=== PATIENT | female | born 1990 | race Caucasian/White ===

== ENCOUNTER 2019-01-07 20:49 | Emergency (ER) | payer OTHER ==
[2019-01-07] MEDS ORDERED: SODIUM CHLORIDE 0.9% 1,000 ML IV STA ×2 (21:16)
[2019-01-07] MEDS ORDERED: ONDANSETRON 4 MG/2 ML VIAL IVP STA (21:16)
[2019-01-07] MEDS ORDERED: KETOROLAC 30 MG/ML 1 ML VIAL IVP STA (21:16)
--- NOTE | 2019-01-07 21:24 | ED ---
Abdominal Pain HPI - General Source: patient, RN notes reviewed, old records reviewed Mode of arrival: ambulatory Limitations: no limitations <Senait Irby - Last Filed: 01/07/19 23:08> <Tl Tomas - Last Filed: 01/08/19 00:34> - General Chief Complaint: Abdominal Pain Stated Complaint: Abd.pain Time Seen by Provider: 01/07/19 21:02 - History of Present Illness Initial Comments: Patient is a 28-year-old female presents emergency department today with 2 days of right lower quadrant abdominal pain radiating towards her back. She states he reportedly started in the periumbilical region. Patient states that she's had chills but no specific fever that she is aware of. She is also complains of nausea and some diarrhea. Patient states this surgical history includes endometriosis. Patient reportedly has a history of hepatitis. She is currently on the VIVItrol shot for opiate addiction. (Senait Irby) - Related Data Home Medications Medication Instructions Recorded Confirmed ARIPiprazole [Abilify] 10 mg PO HS 01/07/19 01/07/19 QUEtiapine [SEROquel] 100 mg PO HS 01/07/19 01/07/19 buPROPion HCL [Wellbutrin SR] 200 mg PO DAILY 01/07/19 01/07/19 busPIRone HCl [Buspar] 5 mg PO TID 01/07/19 01/07/19 clonazePAM [KlonoPIN] 0.5 mg PO BID 01/07/19 01/07/19 Allergies Allergy/AdvReac Type Severity Reaction Status Date / Time carbamazepine [From Tegretol] Allergy Unknown Verified 01/07/19 21:09 Penicillins Allergy Unknown Verified 01/07/19 21:09 Review of Systems ROS Other: All systems not noted in ROS Statement are negative. <Senait Irby - Last Filed: 01/07/19 23:08> ROS Other: All systems not noted in ROS Statement are negative. <Tl Tomas - Last Filed: 01/08/19 00:34> ROS Statement: Those systems with pertinent positive or pertinent negative responses have been documented in the HPI. 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 History of Any Multi-Drug Resistant Organisms: None Reported Additional Past Surgical History / Comment(s): edometriosis surgery Past Psychological History: No Psychological Hx Reported Smoking Status: Current every day smoker Past Alcohol Use History: None Reported Past Drug Use History: None Reported <Senait Irby - Last Filed: 01/07/19 23:08> General Exam Limitations: no limitations General appearance: alert, in no apparent distress Head exam: Present: atraumatic, normocephalic, normal inspection Eye exam: Present: normal appearance, PERRL, EOMI. Absent: scleral icterus, con junctival injection, periorbital swelling ENT exam: Present: normal exam, mucous membranes moist Neck exam: Present: normal inspection. Absent: tenderness, meningismus, lymphadenopathy Respiratory exam: Present: normal lung sounds bilaterally. Absent: respiratory distress, wheezes, rales, rhonchi, stridor Cardiovascular Exam: Present: regular rate, normal rhythm, normal heart sounds. Absent: systolic murmur, diastolic murmur, rubs, gallop, clicks GI/Abdominal exam: Present: soft, tenderness (RLQ ), normal bowel sounds. Absent: distended, guarding, rebound, rigid Extremities exam: Present: normal inspection, full ROM, normal capillary refill. Absent: tenderness, pedal edema, joint swelling, calf tenderness Back exam: Present: normal inspection Neurological exam: Present: alert, oriented X3, CN II-XII intact Psychiatric exam: Present: normal affect, normal mood <Senait Irby - Last Filed: 01/07/19 23:08> - General Exam Comments Initial Comments: 28-year-old female. Alert and oriented 3. No distress. (Senait Irby) Course Vital Signs 01/07/19 01/07/19 20:54 21:15 Temperature 98.4 F 99.4 F Pulse Rate 114 H Respiratory 18 Rate Blood Pressure 115/79 O2 Sat by Pulse 99 Oximetry Medical Decision Making <Senait Irby - Last Filed: 01/07/19 23:08> - Lab Data Result diagrams: 01/07/19 22:40 01/07/19 22:40 <Tl Tomas - Last Filed: 01/08/19 00:34> - Medical Decision Making Patient is a 28-year-old female presents emergency department today with 3 days of right lower quadrant abdominal pain nausea. Patient does have some tendern ess noted. She was given IV fluids labwork obtained. She does not have a low- grade temperature 99.4. She is given Toradol. Patient was a difficult IV start. Eventually ultrasound guided IV was placed. She is currently in computed tomography scan. Patient's case will be discharged to Dr. Tomas pending CT report. (Senait Irby) I saw this patient in conjunction with the physician elder assistant. I performed independent history and physical exam. Agree with case management. CT results do not show inflammation related to the appendix. Patient does have a right ovarian cyst. Discussed appropriate further care and follow-up as well as return parameters. (Tl Tomas) - Lab Data Lab Results 01/07/19 01/07/19 01/07/19 Range/Units 21:50 21:50 22:40 WBC (3.8-10.6) k/uL RBC (3.80-5.40) m/uL Hgb (11.4-16.0) gm/dL Hct (34.0-46.0) % MCV (80.0-100.0) fL MCH (25.0-35.0) pg MCHC (31.0-37.0) g/dL RDW (11.5-15.5) % Plt Count (150-450) k/uL Neutrophils % % Lymphocytes % % Monocytes % % Eosinophils % % Basophils % % Neutrophils # (1.3-7.7) k/uL Lymphocytes # (1.0-4.8) k/uL Monocytes # (0-1.0) k/uL Eosinophils # (0-0.7) k/uL Basophils # (0-0.2) k/uL Sodium 142 (137-145) mmol/L Potassium 4.4 (3.5-5.1) mmol/L Chloride 107 (98-107) mmol/L Carbon Dioxide 25 (22-30) mmol/L Anion Gap 10 mmol/L BUN 9 (7-17) mg/dL Creatinine 0.84 (0.52-1.04) mg/dL Est GFR (CKD-EPI)AfAm >90 (>60 ml/min/1.73 sqM) Est GFR (CKD-EPI)NonAf >90 (>60 ml/min/1.73 sqM) Glucose 89 (74-99) mg/dL Calcium 10.1 (8.4-10.2) mg/dL Total Bilirubin 0.7 (0.2-1.3) mg/dL AST 36 (14-36) U/L ALT 45 (9-52) U/L Alkaline Phosphatase 63 (38-126) U/L Total Protein 8.5 H (6.3-8.2) g/dL Albumin 4.9 (3.5-5.0) g/dL Amylase 45 (30-110) U/L Lipase 25 (23-300) U/L Urine Color Yellow Urine Appearance Cloudy H (Clear) Urine pH 7.0 (5.0-8.0) Ur Specific [place] 1.009 (1.001-1.035) Urine Protein Negative (Negative) Urine Glucose (UA) Negative (Negative) Urine Ketones Negative (Negative) Urine Blood Negative (Negative) Urine Nitrite Negative (Negative) Urine Bilirubin Negative (Negative) Urine Urobilinogen <2.0 (<2.0) mg/dL Ur Leukocyte Esterase Small H (Negative) Urine RBC 2 (0-5) /hpf Urine WBC 6 H (0-5) /hpf Ur Squamous Epith Cells 9 H (0-4) /hpf Urine Mucus Rare H (None) /hpf Urine HCG, Qual Not Detected (Not Detectd) 01/07/19 Range/Units 22:40 WBC 9.3 (3.8-10.6) k/uL RBC 4.53 (3.80-5.40) m/uL Hgb 14.2 (11.4-16.0) gm/dL Hct 43.5 (34.0-46.0) % MCV 96.0 (80.0-100.0) fL MCH 31.3 (25.0-35.0) pg MCHC 32.6 (31.0-37.0) g/dL RDW 13.6 (11.5-15.5) % Plt Count 179 (150-450) k/uL Neutrophils % 56 % Lymphocytes % 35 % Monocytes % 6 % Eosinophils % 1 % Basophils % 1 % Neutrophils # 5.2 (1.3-7.7) k/uL Lymphocytes # 3.2 (1.0-4.8) k/uL Monocytes # 0.5 (0-1.0) k/uL Eosinophils # 0.1 (0-0.7) k/uL Basophils # 0.1 (0-0.2) k/uL Sodium (137-145) mmol/L Potassium (3.5-5.1) mmol/L Chloride (98-107) mmol/L Carbon Dioxide (22-30) mmol/L Anion Gap mmol/L BUN (7-17) mg/dL Creatinine (0.52-1.04) mg/dL Est GFR (CKD-EPI)AfAm (>60 ml/min/1.73 sqM) Est GFR (CKD-EPI)NonAf (>60 ml/min/1.73 sqM) Glucose (74-99) mg/dL Calcium (8.4-10.2) mg/dL Total Bilirubin (0.2-1.3) mg/dL AST (14-36) U/L ALT (9-52) U/L Alkaline Phosphatase (38-126) U/L Total Protein (6.3-8.2) g/dL Albumin (3.5-5.0) g/dL Amylase (30-110) U/L Lipase (23-300) U/L Urine Color Urine Appearance (Clear) Urine pH (5.0-8.0) Ur Specific [place] (1.001-1.035) Urine Protein (Negative) Urine Glucose (UA) (Negative) Urine Ketones (Negative) Urine Blood (Negative) Urine Nitrite (Negative) Urine Bilirubin (Negative) Urine Urobilinogen (<2.0) mg/dL Ur Leukocyte Esterase (Negative) Urine RBC (0-5) /hpf Urine WBC (0-5) /hpf Ur Squamous Epith Cells (0-4) /hpf Urine Mucus (None) /hpf Urine HCG, Qual (Not Detectd) Disposition <Senait Irby - Last Filed: 01/07/19 23:08> Is patient prescribed a controlled substance at d/c from ED?: No <Tl Tomas - Last Filed: 01/08/19 00:34> Clinical Impression: Abdominal pain, Ovarian cyst Disposition: HOME SELF-CARE Condition: Good Instructions (If sedation given, give patient instructions): Abdominal Pain (ED), Ovarian Cyst (ED) Referrals: Nonstaff,Physician [Primary Care Provider] - 1-2 days Murali Daley MD [STAFF PHYSICIAN] - 1-2 days
[2019-01-07 22:07] LABS: Appearance,Urine Cloudy (Clear); Bilirubin,Urine Negative (Negative); Blood,Urine Negative (Negative); Color,Urine Yellow; Glucose,Urine (UA) Negative (Negative); Ketones,Urine Negative (Negative); Leukocyte Esterase,Urine Small (Negative); Mucus,Urine Rare /hpf; Nitrite,Urine Negative (Negative); Protein,Urine Negative (Negative); RBC,Urine 2 /hpf (0-5); Specific Gravity,Urine 1.009 (1.001-1.035); Squamous Epithelial Cell,Urine 9 /hpf (0-4); Urobilinogen,Urine <2.0 mg/dL (<2.0); WBC,Urine 6 /hpf (0-5)
[2019-01-07 23:18] LABS: Basophils # (A) 0.1 k/uL (0-0.2); Basophils % (A) 1 %; Eosinophils # (A) 0.1 k/uL (0-0.7); Eosinophils % (A) 1 %; HCT 43.5 % (34.0-46.0); HGB 14.2 gm/dL (11.4-16.0); Lymphocytes # (A) 3.2 k/uL (1.0-4.8); Lymphocytes % (A) 35 %; MCH 31.3 pg (25.0-35.0); MCHC 32.6 g/dL (31.0-37.0); Mean Platelet Volume 9.4; Monocytes # (A) 0.5 k/uL (0-1.0); Monocytes % (A) 6 %; Neutrophils # (A) 5.2 k/uL (1.3-7.7); Neutrophils % (A) 56 %; Platelet Count 179 k/uL (150-450); RBC 4.53 m/uL (3.80-5.40); RDW 13.6 % (11.5-15.5); WBC 9.3 k/uL (3.8-10.6)
[2019-01-07 23:26] LABS: ALT 45 U/L (9-52); AST 36 U/L (14-36); Albumin 4.9 g/dL (3.5-5.0); Alkaline Phosphatase 63 U/L (38-126); Amylase 45 U/L (30-110); Anion Gap 10 mmol/L; Blood Urea Nitrogen 9 mg/dL (7-17); Calcium 10.1 mg/dL (8.4-10.2); Carbon Dioxide 25 mmol/L (22-30); Chloride 107 mmol/L (98-107); Glucose 89 mg/dL (74-99); Lipase 25 U/L (23-300); Potassium 4.4 mmol/L (3.5-5.1); Sodium 142 mmol/L (137-145); Total Bilirubin 0.7 mg/dL (0.2-1.3); Total Protein 8.5 g/dL (6.3-8.2)
--- NOTE | 2019-01-07 23:39 | CT ---
EXAM: CT Abdomen and Pelvis With Intravenous Contrast CLINICAL HISTORY: ITS.REASON CT Reason: RLQ pain, FEver TECHNIQUE: Axial computed tomography images of the abdomen and pelvis with intravenous contrast. CTDI is 6.9 mGy and DLP is 359 mGy-cm. This CT exam was performed using one or more of the following dose reduction techniques: automated exposure control, adjustment of the mA and/or kV according to patient size, and/or use of iterative reconstruction technique. COMPARISON: No relevant prior studies available. FINDINGS: Lung bases: Unremarkable. No mass. No consolidation. ABDOMEN: Liver: Unremarkable. No mass. Gallbladder and bile ducts: No abnormal ductal dilation or stones. Pancreas: Unremarkable. No mass. No ductal dilation. Spleen: Unremarkable. No splenomegaly. Adrenals: Unremarkable. No mass. Kidneys and ureters: Unremarkable. No solid mass. No hydronephrosis. Stomach and bowel: No obstruction. No mucosal thickening. PELVIS: Appendix: No findings to suggest acute appendicitis. Bladder: Unremarkable. No mass. Reproductive: Right adnexal corpus luteum cyst measuring 1-2 cm. ABDOMEN and PELVIS: Intraperitoneal space: Mild free fluid in the pelvis. No free air. Bones/joints: No acute fracture. No dislocation. Soft tissues: Unremarkable. Vasculature: No abdominal aortic aneurysm. Lymph nodes: Unremarkable. No enlarged lymph nodes. IMPRESSION: 1. Right adnexal corpus luteum cyst measuring 1-2 cm. 2. Mild free fluid in the pelvis.
[2019-01-08] MEDS ORDERED: DICYCLOMINE 10 MG/ML 2 ML AMP IM STA (00:29)
[2019-01-08] MEDS ORDERED: DICYCLOMINE 20 MG TAB PO STA (01:24)
[2019-01-08 02:43] VITALS: BP 111/81; PULSE 97; RESP 19; TEMP 99
== END 2019-01-08 01:37 | disposition home or self-care (01) ==
LOC: EC 20:49
DX: N83.201 Unspecified ovarian cyst, right side (principal); F17.200 Nicotine dependence, unspecified, uncomplicated; Z79.899 Other long term (current) drug therapy; Z88.0 Allergy status to penicillin; Z88.8 Allergy status to other drugs, medicaments and biological substances
CPT/HCPCS: 36415; 80053; 82150; 83605; 83690; 85025; 81001; 81025; 87040; 74177; 99284; 96374; 96375; 96361 ×3; J2405; J1885; Q9967

== ENCOUNTER 2019-01-08 15:07 | Emergency (ER) | payer OTHER ==
[2019-01-08 15:35] VITALS: TEMP 98.6
--- NOTE | 2019-01-08 16:59 | ED ---
Nausea/Vomiting/Diarrhea HPI - General Source: patient Mode of arrival: ambulatory Limitations: no limitations <Senait Irby - Last Filed: 01/08/19 16:58> <Dale Dos Santos - Last Filed: 01/08/19 17:13> - General Chief complaint: Nausea/Vomiting/Diarrhea Stated complaint: Abd pain Time Seen by Provider: 01/08/19 15:44 - Related Data Home Medications Medication Instructions Recorded Confirmed ARIPiprazole [Abilify] 10 mg PO HS 01/07/19 01/08/19 QUEtiapine [SEROquel] 100 mg PO HS 01/07/19 01/08/19 buPROPion HCL [Wellbutrin SR] 200 mg PO DAILY 01/07/19 01/08/19 busPIRone HCl [Buspar] 5 mg PO TID 01/07/19 01/08/19 clonazePAM [KlonoPIN] 0.5 mg PO BID 01/07/19 01/08/19 Previous Rx's Medication Instructions Recorded Ibuprofen [Motrin] 600 mg PO Q6HR PRN #20 tab 01/08/19 Allergies Allergy/AdvReac Type Severity Reaction Status Date / Time carbamazepine [From Tegretol] Allergy Unknown Verified 01/08/19 17:00 Penicillins Allergy Unknown Verified 01/08/19 17:00 Review of Systems ROS Other: All systems not noted in ROS Statement are negative. <Senait Irby - Last Filed: 01/08/19 16:58> ROS Other: All systems not noted in ROS Statement are negative. <Dale Dos Santos - Last Filed: 01/08/19 17:13> ROS Statement: Those systems with pertinent positive or pertinent negative responses have been documented in the HPI. 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 History of Any Multi-Drug Resistant Organisms: None Reported Additional Past Surgical History / Comment(s): edometriosis surgery Past Psychological History: No Psychological Hx Reported Smoking Status: Current every day smoker Past Alcohol Use History: None Reported Past Drug Use History: None Reported <Senait Irby - Last Filed: 01/08/19 16:58> General Exam Limitations: no limitations External exam: Present: normal external exam Speculum exam: Present: normal speculum exam, vaginal discharge (minimal, white adherant discharge). Absent: cervical discharge, vaginal bleeding, foreign body By manual exam: Present: normal by manual exam, adnexal tenderness (R adnexal tenderness). Absent: cervical motion tenderness <SurekhaSenait - Last Filed: 01/08/19 16:58> Course Vital Signs 01/08/19 15:31 Temperature 98.6 F Pulse Rate 71 Respiratory 16 Rate Blood Pressure 105/71 O2 Sat by Pulse 95 Oximetry Medical Decision Making <Dale Dos Santos - Last Filed: 01/08/19 17:13> - Medical Decision Making Medical decision making; the 28-year-old female seen emergency room yesterday. CAT scan that time was negative for appendicitis or any other pathology other than possible saltwater free fluid secondary to a ruptured right ovarian cyst. The patient reported that she got significant relief with the Toradol shot she received yesterday. It was requesting another. Patient will be following up with infectious disease and starting a liver pathology. She is on the visit control because of past narcotic abuse. No narcotics will be administered or provided. The patient referred to [facility], Dr. Chavez. A message be left on his answering service. For ovarian cyst and dysfunctional uterine bleeding. Physician's training program assistant Senait Irby performed vaginal examination. Negative chandelier sign. Mild tenderness to the right adnexal area. Normal discharge, no bleeding. Culture swabs were obtained and sent to laboratory. (Dale Dos Santos) Disposition <Senait Irby - Last Filed: 01/08/19 16:58> Is patient prescribed a controlled substance at d/c from ED?: No Time of Disposition: 17:13 <Dale Dos Santos - Last Filed: 01/08/19 17:13> Clinical Impression: Ovarian cyst, Dysfunctional uterine bleeding Narrative: follow-up with on-call [facility], Dr. Chavez. Follow-up with your infectious disease and your liver specialist. Take medications as directed. (Dale Dos Santos) Disposition: HOME SELF-CARE Condition: Fair Additional Instructions: take Motrin as directed with food, also obtain [id number] Zantac or Pepcid take daily for the next week. Prescriptions: Ibuprofen [Motrin] 600 mg PO Q6HR PRN #20 tab PRN Reason: as needed for pain Referrals: James Ty MD [Primary Care Provider] - 1-2 days Murali Daley MD [STAFF PHYSICIAN] - 1-2 days
[2019-01-08] MEDS ORDERED: KETOROLAC 30 MG/ML 1 ML VIAL IM STA (17:02)
[2019-01-08 17:40] VITALS: BP 103/77; PULSE 75; RESP 18
[2019-01-09 15:47] LABS: C. trachomatis,PCR Negative (Neg,Equiv); Chlamydia trachomatis Source Cervix
[2019-01-09 15:48] LABS: N. gonorrhoeae,PCR Negative (Neg,Equiv); Neisseria Source Cervix
== END 2019-01-08 17:40 | disposition home or self-care (01) ==
LOC: EC 15:07
DX: N83.201 Unspecified ovarian cyst, right side (principal); N93.8 Other specified abnormal uterine and vaginal bleeding; R11.2 Nausea with vomiting, unspecified; R19.7 Diarrhea, unspecified; F17.200 Nicotine dependence, unspecified, uncomplicated; Z79.899 Other long term (current) drug therapy; Z88.8 Allergy status to other drugs, medicaments and biological substances; Z88.0 Allergy status to penicillin
CPT/HCPCS: 87491; 87591; 99284; 96372; J1885

== ENCOUNTER 2019-01-09 18:11 | Emergency (ER) | payer OTHER ==
[2019-01-09 18:51] VITALS: RESP 18
[2019-01-09] MEDS ORDERED: SODIUM CHLORIDE 0.9% 1,000 ML IV STA (19:47)
[2019-01-09] MEDS ORDERED: KETOROLAC 30 MG/ML 1 ML VIAL IVP STA (19:47)
[2019-01-09] MEDS ORDERED: ONDANSETRON 4 MG/2 ML VIAL IVP STA (19:47)
[2019-01-09 19:57] LABS: Basophils % (A) 0 %; Eosinophils # (A) 0.3 k/uL (0-0.7); Eosinophils % (A) 2 %; HCT 42.5 % (34.0-46.0); HGB 14.3 gm/dL (11.4-16.0); Lymphocytes # (A) 1.8 k/uL (1.0-4.8); Lymphocytes % (A) 16 %; MCH 31.3 pg (25.0-35.0); MCHC 33.7 g/dL (31.0-37.0); Mean Platelet Volume 10.5; Monocytes # (A) 0.6 k/uL (0-1.0); Monocytes % (A) 5 %; Neutrophils # (A) 8.4 k/uL (1.3-7.7); Neutrophils % (A) 75 %; Platelet Count 164 k/uL (150-450); RBC 4.57 m/uL (3.80-5.40); RDW 13.7 % (11.5-15.5); WBC 11.2 k/uL (3.8-10.6)
[2019-01-09 20:07] LABS: Appearance,Urine Clear (Clear); Bilirubin,Urine Negative (Negative); Blood,Urine Negative (Negative); Color,Urine Light Yellow; Glucose,Urine (UA) Negative (Negative); Ketones,Urine Negative (Negative); Leukocyte Esterase,Urine Negative (Negative); Nitrite,Urine Negative (Negative); Protein,Urine Negative (Negative); Urobilinogen,Urine <2.0 mg/dL (<2.0)
[2019-01-09 20:07] LABS: ALT 23 U/L (9-52); AST 34 U/L (14-36); Albumin 4.9 g/dL (3.5-5.0); Alkaline Phosphatase 61 U/L (38-126); Amylase 65 U/L (30-110); Anion Gap 10 mmol/L; Blood Urea Nitrogen 9 mg/dL (7-17); Calcium 9.7 mg/dL (8.4-10.2); Carbon Dioxide 22 mmol/L (22-30); Chloride 105 mmol/L (98-107); Glucose 86 mg/dL (74-99); Lipase 65 U/L (23-300); Sodium 137 mmol/L (137-145); Total Protein 8.8 g/dL (6.3-8.2)
[2019-01-09 20:10] LABS: Potassium 4.3 mmol/L (3.5-5.1)
[2019-01-09 20:17] LABS: Specific Gravity,Urine 1.001 (1.001-1.035)
--- NOTE | 2019-01-09 21:02 | ED ---
Abdominal Pain HPI - General Chief Complaint: Abdominal Pain Stated Complaint: abd pain Time Seen by Provider: 01/09/19 19:22 Source: patient Mode of arrival: ambulatory Limitations: no limitations - History of Present Illness Initial Comments: 28-year-old female patient presents to the emergency department today for evaluation of right lower quadrant abdominal pain, vomiting, and diarrhea. Patient has had symptoms for the last 2-3 days. States it initially started with abdominal pain and she developed vomiting and diarrhea on the following days. She states that she has been feverish and chilled. States she has been seen and evaluated in this emergency department for the last 2 days. She was diagnosed with ovarian cyst and instructed to follow-up with [facility]. States that she is still awaiting to hear back from the office for an appointment. Patient denies taking any medications for her symptoms. States she is unable to keep down any food or fluids. She denies any hematochezia, melena, or hematemesis. Denies any abnormal vaginal bleeding or discharge. Patient denies any recent rash, shortness breath, chest pain, back pain, numbness, tingling, dizziness, weakness, hematuria, dysuria, urinary urgency, urinary frequency, headache, visual changes, or any other complaints. - Related Data Home Medications Medication Instructions Recorded Confirmed ARIPiprazole [Abilify] 10 mg PO HS 01/07/19 01/09/19 QUEtiapine [SEROquel] 100 mg PO HS 01/07/19 01/09/19 buPROPion HCL [Wellbutrin SR] 200 mg PO DAILY 01/07/19 01/09/19 busPIRone HCl [Buspar] 5 mg PO TID 01/07/19 01/09/19 clonazePAM [KlonoPIN] 0.5 mg PO BID 01/07/19 01/09/19 Previous Rx's Medication Instructions Recorded Ibuprofen [Motrin] 600 mg PO Q6HR PRN #20 tab 01/08/19 Ondansetron [Zofran ODT] 4 mg PO Q8HR PRN #10 tab 01/09/19 Allergies Allergy/AdvReac Type Severity Reaction Status Date / Time carbamazepine [From Tegretol] Allergy Unknown Verified 01/09/19 19:09 Penicillins Allergy Unknown Verified 01/09/19 19:09 Review of Systems ROS Statement: Those systems with pertinent positive or pertinent negative responses have been documented in the HPI. ROS Other: All systems not noted in ROS Statement are negative. 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 History of Any Multi-Drug Resistant Organisms: None Reported Additional Past Surgical History / Comment(s): edometriosis surgery Past Psychological History: No Psychological Hx Reported Smoking Status: Current every day smoker Past Alcohol Use History: None Reported Past Drug Use History: None Reported General Exam Limitations: no limitations General appearance: alert, in no apparent distress, other (Physical well- developed, well-nourished adult female patient in no acute distress. Vital signs upon presentation are temperature 98.5F, pulse 90, respirations 18, blood pressure 109/75, pulse ox 100% on room air.) Eye exam: Present: normal appearance, PERRL, EOMI. Absent: scleral icterus, conjunctival injection, periorbital swelling ENT exam: Present: normal exam, normal oropharynx, mucous membranes moist Respiratory exam: Present: normal lung sounds bilaterally. Absent: respiratory distress, wheezes, rales, rhonchi, stridor Cardiovascular Exam: Present: regular rate, normal rhythm, normal heart sounds. Absent: systolic murmur, diastolic murmur, rubs, gallop, clicks GI/Abdominal exam: Present: soft, tenderness (Right lower quadrant tenderness, suprapubic tenderness), normal bowel sounds. Absent: distended, guarding, rebound, rigid Back exam: Present: normal inspection. Absent: CVA tenderness (R), CVA tenderness (L) Neurological exam: Present: alert, oriented X3, CN II-XII intact Psychiatric exam: Present: normal affect, normal mood Skin exam: Present: warm, dry, intact, normal color. Absent: rash Course Vital Signs 01/09/19 01/09/19 01/09/19 18:48 21:50 22:39 Temperature 98.5 F 98.3 F 98.2 F Pulse Rate 90 90 88 Respiratory 18 18 18 Rate Blood Pressure 109/75 107/64 129/79 O2 Sat by Pulse 100 97 97 Oximetry Medical Decision Making - Medical Decision Making 28 year-old female patient presented to the emergency department today for evaluation of vomiting, diarrhea, and right lower quadrant abdominal pain. Patient has been seen and evaluated for the last 2 days and this emergency department for similar symptoms. Physical examination did reveal some right lower quadrant tenderness. Labs reviewed and did reveal mildly elevated white blood cell count at 11.2 which is felt to be reactive from vomiting. Ultrasound was obtained and showed no acute abnormalities. She did have CT scanning 2 days ago which showed a corpus luteum cyst but no other abnormalities. Upon reevalua tion patient reports complete improvement of her symptoms. Reexamination reveals soft nontender abdomen. I did discuss lab results and ultrasound findings. I did discuss her symptoms are most likely related to a viral gastroenteritis. She will be given a prescription for Zofran. She is instruct ed to follow-up with her primary care physician for recheck in 1-2 days. Return parameters were discussed in detail. She verbalizes understanding and agrees with this plan. - Lab Data Result diagrams: 01/09/19 19:44 01/09/19 19:44 Lab Results 01/09/19 01/09/19 01/09/19 Range/Units 19:44 19:44 19:44 WBC 11.2 H (3.8-10.6) k/uL RBC 4.57 (3.80-5.40) m/uL Hgb 14.3 (11.4-16.0) gm/dL Hct 42.5 (34.0-46.0) % MCV 93.0 (80.0-100.0) fL MCH 31.3 (25.0-35.0) pg MCHC 33.7 (31.0-37.0) g/dL RDW 13.7 (11.5-15.5) % Plt Count 164 (150-450) k/uL Neutrophils % 75 % Lymphocytes % 16 % Monocytes % 5 % Eosinophils % 2 % Basophils % 0 % Neutrophils # 8.4 H (1.3-7.7) k/uL Lymphocytes # 1.8 (1.0-4.8) k/uL Monocytes # 0.6 (0-1.0) k/uL Eosinophils # 0.3 (0-0.7) k/uL Basophils # 0.0 (0-0.2) k/uL Sodium 137 (137-145) mmol/L Potassium 4.3 (3.5-5.1) mmol/L Chloride 105 (98-107) mmol/L Carbon Dioxide 22 (22-30) mmol/L Anion Gap 10 mmol/L BUN 9 (7-17) mg/dL Creatinine 0.91 (0.52-1.04) mg/dL Est GFR (CKD-EPI)AfAm >90 (>60 ml/min/1.73 sqM) Est GFR (CKD-EPI)NonAf 86 (>60 ml/min/1.73 sqM) Glucose 86 (74-99) mg/dL Plasma Lactic Acid Hal 1.0 (0.7-2.0) mmol/L Calcium 9.7 (8.4-10.2) mg/dL Total Bilirubin 1.0 (0.2-1.3) mg/dL AST 34 (14-36) U/L ALT 23 (9-52) U/L Alkaline Phosphatase 61 (38-126) U/L Total Protein 8.8 H (6.3-8.2) g/dL Albumin 4.9 (3.5-5.0) g/dL Amylase 65 (30-110) U/L Lipase 65 (23-300) U/L Urine Color Urine Appearance (Clear) Urine pH (5.0-8.0) Ur Specific [place] (1.001-1.035) Urine Protein (Negative) Urine Glucose (UA) (Negative) Urine Ketones (Negative) Urine Blood (Negative) Urine Nitrite (Negative) Urine Bilirubin (Negative) Urine Urobilinogen (<2.0) mg/dL Ur Leukocyte Esterase (Negative) Urine HCG, Qual (Not Detectd) 01/09/19 01/09/19 Range/Units 19:59 19:59 WBC (3.8-10.6) k/uL RBC (3.80-5.40) m/uL Hgb (11.4-16.0) gm/dL Hct (34.0-46.0) % MCV (80.0-100.0) fL MCH (25.0-35.0) pg MCHC (31.0-37.0) g/dL RDW (11.5-15.5) % Plt Count (150-450) k/uL Neutrophils % % Lymphocytes % % Monocytes % % Eosinophils % % Basophils % % Neutrophils # (1.3-7.7) k/uL Lymphocytes # (1.0-4.8) k/uL Monocytes # (0-1.0) k/uL Eosinophils # (0-0.7) k/uL Basophils # (0-0.2) k/uL Sodium (137-145) mmol/L Potassium (3.5-5.1) mmol/L Chloride (98-107) mmol/L Carbon Dioxide (22-30) mmol/L Anion Gap mmol/L BUN (7-17) mg/dL Creatinine (0.52-1.04) mg/dL Est GFR (CKD-EPI)AfAm (>60 ml/min/1.73 sqM) Est GFR (CKD-EPI)NonAf (>60 ml/min/1.73 sqM) Glucose (74-99) mg/dL Plasma Lactic Acid Hal (0.7-2.0) mmol/L Calcium (8.4-10.2) mg/dL Total Bilirubin (0.2-1.3) mg/dL AST (14-36) U/L ALT (9-52) U/L Alkaline Phosphatase (38-126) U/L Total Protein (6.3-8.2) g/dL Albumin (3.5-5.0) g/dL Amylase (30-110) U/L Lipase (23-300) U/L Urine Color Light Yellow Urine Appearance Clear (Clear) Urine pH 6.0 (5.0-8.0) Ur Specific [place] 1.001 (1.001-1.035) Urine Protein Negative (Negative) Urine Glucose (UA) Negative (Negative) Urine Ketones Negative (Negative) Urine Blood Negative (Negative) Urine Nitrite Negative (Negative) Urine Bilirubin Negative (Negative) Urine Urobilinogen <2.0 (<2.0) mg/dL Ur Leukocyte Esterase Negative (Negative) Urine HCG, Qual Not Detected (Not Detectd) - Radiology Data Radiology results: report reviewed Ultrasound of the pelvis was obtained. Report was reviewed in its entirety. I mpression by Dr. Pickering shows negative exam. No evidence of ovarian torsion. No adnexal mass or free fluid. Disposition Clinical Impression: Gastroenteritis, Abdominal pain Disposition: HOME SELF-CARE Condition: Good Instructions (If sedation given, give patient instructions): Gastroenteritis (ED), Abdominal Pain (ED) Additional Instructions: Start with clear liquid diet and advance as tolerated. Take medications as directed. Follow-up through primary care physician for recheck as soon as possible. Return to the emergency department for any new, worsening, or concerning symptoms. Prescriptions: Ondansetron [Zofran ODT] 4 mg PO Q8HR PRN #10 tab PRN Reason: Nausea Is patient prescribed a controlled substance at d/c from ED?: No Referrals: James Ty MD [Primary Care Provider] - 1-2 days Time of Disposition: 22:29
--- NOTE | 2019-01-09 21:35 | US ---
EXAMINATION TYPE: US transvaginal DATE OF EXAM: 01/09/2019 COMPARISON: NONE CLINICAL HISTORY: Pain. Pain and vomiting. TECHNIQUE: Transvaginal (TV). EXAM MEASUREMENTS: Uterus: 6.3 x 3.7 x 5.4 cm Endometrial Stripe: 1.0 cm Right Ovary: 2.8 x 1.7 x 2.1 cm 1. Uterus: Anteverted wnl 2. Endometrium: wnl 3. Right Ovary: wnl 4. Left Ovary: Obscured by overlying bowel gas Spectral, color and waveform doppler imaging shows good arterial and venous flow within the right o vary; there is no evidence for ovarian torsion. 5. Bilateral Adnexa: wnl 6. Posterior cul-de-sac: wnl IMPRESSION: Negative exam. No evidence of ovarian torsion. No adnexal mass or free fluid.
[2019-01-09] MEDS ORDERED: clonazePAM 0.5 MG TAB PO STA (22:28)
[2019-01-09] MEDS ORDERED: ONDANSETRON 4 MG ODT STARTER PACK 2 TAB BTL PO STA (22:28)
[2019-01-09 22:42] VITALS: BP 129/79; PULSE 88; TEMP 98.2
== END 2019-01-09 22:42 | disposition home or self-care (01) ==
LOC: EC 18:11
DX: K52.9 Noninfective gastroenteritis and colitis, unspecified (principal); N83.10 Corpus luteum cyst of ovary, unspecified side; F17.200 Nicotine dependence, unspecified, uncomplicated; Z86.19 Personal history of other infectious and parasitic diseases; Z79.899 Other long term (current) drug therapy; Z88.0 Allergy status to penicillin; Z88.8 Allergy status to other drugs, medicaments and biological substances
CPT/HCPCS: 36415; 80053; 82150; 83605; 83690; 85025; 81003; 81025; 93976; 76830; 99284; 96374; 96375; 96361 ×3; J2405; J1885; S0119

== ENCOUNTER 2020-07-23 14:03 | Inpatient (IN) | payer MEDICAID, OTHER ==
--- NOTE | 2020-07-23 14:18 | ED ---
Psych HPI - General Chief Complaint: Psychiatric Symptoms Stated Complaint: Mental Health Time Seen by Provider: 07/23/20 14:17 Source: patient Mode of arrival: ambulatory - History of Present Illness Initial Comments: Patient is a 29-year-old female presenting to the emergency department for psychiatric evaluation. Patient states this was a mandated court order for her to be evaluated in the emergency department after she attempted suicide 5 days ago. Patient states she overdosed on fentanyl and was unresponsive but was rescued. Patient states she is going through a lot with the of her sister and her fianc. She denies any homicidal, suicidal thoughts or ideations at the moment. - Related Data Home Medications Medication Instructions Recorded Confirmed ARIPiprazole [Abilify] 10 mg PO HS 01/07/19 07/23/20 clonazePAM [KlonoPIN] 0.5 mg PO BID 01/07/19 07/23/20 Albuterol Sulfate [Ventolin HFA] 2 puff INHALATION RT-Q6H PRN 07/23/20 07/23/20 QUEtiapine FUMARATE [SEROquel] 300 mg PO HS 07/23/20 07/23/20 Allergies Allergy/AdvReac Type Severity Reaction Status Date / Time carbamazepine [From Tegretol] Allergy Unknown Verified 07/23/20 15:14 Penicillins Allergy Unknown Verified 07/23/20 15:14 Review of Systems ROS Statement: Those systems with pertinent positive or pertinent negative responses have been documented in the HPI. ROS Other: All systems not noted in ROS Statement are negative. 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 History of Any Multi-Drug Resistant Organisms: None Reported Additional Past Surgical History / Comment(s): edometriosis surgery Past Psychological History: Anxiety, Bipolar, PTSD Smoking Status: Current every day smoker Past Alcohol Use History: None Reported Past Drug Use History: Cocaine, Heroin, Opiates General Exam Limitations: no limitations General appearance: alert, in no apparent distress, anxious Head exam: Present: atraumatic, normocephalic, normal inspection Eye exam: Present: normal appearance, PERRL, EOMI Pupils: Present: normal accommodation ENT exam: Present: normal exam, normal oropharynx, mucous membranes moist, TM's normal bilaterally, normal external ear exam Neck exam: Present: normal inspection, full ROM. Absent: tenderness Respiratory exam: Present: normal lung sounds bilaterally. Absent: respiratory distress, wheezes, rales Cardiovascular Exam: Present: regular rate, normal rhythm, normal heart sounds Extremities exam: Present: normal inspection, full ROM, normal capillary refill. Absent: tenderness Back exam: Present: normal inspection, full ROM. Absent: tenderness, CVA tenderness (R), CVA tenderness (L) Neurological exam: Present: alert, oriented X3, normal gait Psychiatric exam: Present: normal affect, depressed, anxious Skin exam: Present: warm, dry, intact, normal color Course Vital Signs 07/23/20 14:07 Temperature 98.7 F Pulse Rate 93 Respiratory 16 Rate Blood Pressure 120/78 O2 Sat by Pulse 100 Oximetry Medical Decision Making - Medical Decision Making Patient is a 29-year-old female presenting to the emergency department for psychiatric evaluation. She doesn't have any suicidal or homicidal thoughts or ideations at this time. This is a mandated court order for her evaluation. EPS related the patient and she will be admitted for further psychiatric evaluation. Patient was given an anxiolytic and a nicotine patch. Case discussed with physician Disposition Clinical Impression: Acute anxiety, Adjustment reaction of adult life Disposition: ADMITTED IP TO THIS [facility] Condition: Fair Is patient prescribed a controlled substance at d/c from ED?: No Time of Disposition: 18:07
[2020-07-23] MEDS ORDERED: NICOTINE 14MG/24HR PATCH TRANSDERM STA (17:12)
[2020-07-23] MEDS ORDERED: LORazepam 2 MG/ML INJ IV STA (17:13)
[2020-07-23] MEDS ORDERED: LORazepam 2 MG/ML INJ IM STA (17:35)
[2020-07-23] MEDS ORDERED: ALBUTEROL HFA INHALER INHALATION PRN (17:50)
[2020-07-23] MEDS ORDERED: MAGNESIUM HYDROXIDE 2,400 MG/10 ML CUP PO PRN (17:51)
[2020-07-23] MEDS ORDERED: MAG HYDROX/AL HYDROX/SIMETH 30 ML CUP PO PRN (17:51)
[2020-07-23] MEDS ORDERED: ZIPRASIDONE 20 MG VIAL IM PRN (17:51)
[2020-07-23] MEDS ORDERED: ACETAMINOPHEN TAB 325 MG TAB PO PRN (17:51)
[2020-07-23 18:11] LABS: Appearance,Urine Cloudy (Clear); Bilirubin,Urine Negative (Negative); Blood,Urine Negative (Negative); Color,Urine Light Yellow; Glucose,Urine (UA) Negative (Negative); Ketones,Urine Negative (Negative); Leukocyte Esterase,Urine Negative (Negative); Mucus,Urine Rare /hpf; Nitrite,Urine Negative (Negative); Protein,Urine Negative (Negative); RBC,Urine 1 /hpf (0-5); Specific Gravity,Urine 1.007 (1.001-1.035); Squamous Epithelial Cell,Urine 11 /hpf (0-4); Urobilinogen,Urine <2.0 mg/dL (<2.0); WBC,Urine <1 /hpf (0-5)
[2020-07-23] MEDS: clonazePAM 0.5 MG TAB PO SCH (19:08)
--- NOTE | 2020-07-23 20:56 | P.CONS ---
History of Present Illness - Reason for Consult Consult date: 07/23/20 - History of Present Illness The patient is a 29-year-old female with a PMH of depression and polysubstance abuse who was brought into the emergency room under police custody after pickup order for multiple suicide attempts. The patient had reportedly attempted to kill herself by overdosing on fentanyl a week prior. She was admitted to the mental health unit where she was seen and evaluated. The patient reports feelin g better since that time, and denied any active homicidal or suicidal ideation. She reported ongoing anxiety for which she is hoping that her medications will be adjusted. She otherwise denied any active complex at this time. She denied chest pain, shortness of breath, cough, fever, chills. She denied nausea vomiting, abdominal pain, diarrhea. Review of Systems Pertinent positives and negatives as discussed in HPI, a complete review of systems was performed and all other systems are negative. 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 History of Any Multi-Drug Resistant Organisms: None Reported Additional Past Surgical History / Comment(s): edometriosis surgery Past Psychological History: Anxiety, Bipolar, PTSD Smoking Status: Former smoker Past Alcohol Use History: None Reported Past Drug Use History: Cocaine, Heroin, Opiates Medications and Allergies Home Medications Medication Instructions Recorded Confirmed Type ARIPiprazole [Abilify] 10 mg PO HS 01/07/19 07/23/20 History clonazePAM [KlonoPIN] 0.5 mg PO BID 01/07/19 07/23/20 History Albuterol Sulfate [Ventolin HFA] 2 puff INHALATION RT-Q6H PRN 07/23/20 07/23/20 History QUEtiapine FUMARATE [SEROquel] 300 mg PO HS 07/23/20 07/23/20 History Allergies Allergy/AdvReac Type Severity Reaction Status Date / Time carbamazepine [From Tegretol] Allergy Unknown Verified 07/23/20 15:14 Penicillins Allergy Unknown Verified 07/23/20 15:14 Physical Exam Vitals: Vital Signs Temp Pulse Pulse Resp BP BP Pulse Ox 07/23/20 18:28 99.4 F 102 H 18 112/67 99 07/23/20 14:07 98.7 F 93 16 120/78 100 Intake and Output 07/23/20 07/23/20 07/23/20 06:59 14:59 22:59 Other: Weight 54.658 kg 53 kg General: non toxic, no distress, appears older than stated age, normal weight Derm: no unusual rashes/lesions no unusual ecchymoses, warm, dry Head: atraumatic, normocephalic, symmetric Eyes: EOMI, no lid lag, anicteric sclera, pupils equal round reactive to light ENT: Nose and ears atraumatic, no thrush, no pharyngeal erythema Neck: No thyromegaly, no cervical lymphadenopathy, trachea midline, supple Mouth: no lip lesion, mucus membranes moist Cardiovascular: S1S2 reg, no murmur, positive posterior tibial pulse bilateral, no edema, capillary refill less than 2 seconds Lungs: CTA bilateral, no rhonchi, no rales , no accessory muscle use Abdominal: soft, nontender to palpation, no guarding, no appreciable organomegaly, normal bowel sounds Ext: no gross muscle atrophy, muscle strength 5 out of 5 in all 4 extremities grossly, no contractures, Neuro: CN II-XI grossly intact, light touch intact all 4 extremities, finger to nose within normal limits, Psych: Alert, oriented, appropriate affect Results Labs: Abnormal Lab Results - Last 24 Hours (Table) 07/23/20 Range/Units 18:00 Urine Appearance Cloudy H (Clear) Ur Squamous Epith Cells 11 H (0-4) /hpf Urine Mucus Rare H (None) /hpf Assessment and Plan Plan: Polysubstance abuse, including IV heroin and fentanyl -Advised patient strongly on the importance of cessation Depression with suicidal ideation and anxiety -As per psychiatry Thank you for allowing us to participate in the care of this patient. We will follow peripherally. Do not hesitate to contact us with questions. Someone can be reached from the [facility] hospitalist group at all hours of the day at [phone].
[2020-07-23] MEDS ORDERED: QUEtiapine 200 MG TAB PO SCH (21:00)
[2020-07-23] MEDS ORDERED: ARIPiprazole 10 MG TAB PO SCH (21:00)
[2020-07-24 07:13] VITALS: BP 115/60; PULSE 91; RESP 16; TEMP 98.7
[2020-07-24] MEDS: clonazePAM 0.5 MG TAB PO SCH ×2 (08:48→20:33)
[2020-07-24] MEDS ORDERED: NICOTINE 14MG/24HR PATCH TRANSDERM SCH (09:00)
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
[2020-07-24] MEDS: VENLAFAXINE HCL ER 37.5 MG CAP PO SCH (09:56)
[2020-07-24] MEDS: NICOTINE 21MG/24HR PATCH TRANSDERM SCH (11:29)
[2020-07-24] MEDS ORDERED: PRAZOSIN 1 MG CAP PO SCH (21:00)
[2020-07-24] MEDS ORDERED: QUEtiapine 100 MG TAB PO SCH (21:00)
[2020-07-24] MEDS ORDERED: MELATONIN 5 MG TABLET PO STA (23:47)
[2020-07-25] MEDS: NICOTINE 21MG/24HR PATCH TRANSDERM SCH (08:21)
[2020-07-25] MEDS: VENLAFAXINE HCL ER 37.5 MG CAP PO SCH (08:21)
[2020-07-25] MEDS: clonazePAM 0.5 MG TAB PO SCH (08:21)
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
== END 2020-07-25 10:37 | disposition home or self-care (01) | DRG 885 ==
LOC: EC 14:03 → 3MHU 17:22
PROVIDERS: ADMIT Psychiatry & Neurology Psychiatry; ATTEND Psychiatry & Neurology Psychiatry
DX: F31.9 Bipolar disorder, unspecified (principal); F11.10 Opioid abuse, uncomplicated; F60.3 Borderline personality disorder; F43.10 Post-traumatic stress disorder, unspecified; F43.20 Adjustment disorder, unspecified; F41.0 Panic disorder [episodic paroxysmal anxiety]; G47.00 Insomnia, unspecified; F17.200 Nicotine dependence, unspecified, uncomplicated; F14.90 Cocaine use, unspecified, uncomplicated; J45.909 Unspecified asthma, uncomplicated; R45.87 Impulsiveness; Z91.5 Personal history of self-harm; Z79.899 Other long term (current) drug therapy; Z87.19 Personal history of other diseases of the digestive system; Z88.0 Allergy status to penicillin; Z88.8 Allergy status to other drugs, medicaments and biological substances
CPT/HCPCS: 81001; 81025; 82075; 96372; 99285

== ENCOUNTER → 2022-02-11 | Outpatient (CLI) | payer MEDICARE, OTHER ==
--- NOTE | 2022-02-11 13:34 | US ---
EXAMINATION TYPE: US venous doppler duplex LE DATE OF EXAM: 02/11/2022 1:01 PM COMPARISON: NONE CLINICAL HISTORY: R29.898 WEAKNESS BOTH LEGS,R20.0 ANESTHESIA BOTH LEGS. SIDE PERFORMED: Bilateral TECHNIQUE: The lower extremity deep venous system is examined utilizing real time linear array sonog beatriz with graded compression, doppler sonography and color-flow sonography. VESSELS IMAGED: Common Femoral Vein Deep Femoral Vein Greater Saphenous Vein * Femoral Vein Popliteal Vein Small Saphenous Vein * Proximal Calf Veins (* superficial vessels) Right Leg: Negative for DVT Left Leg: Negative for DVT IMPRESSION: No evidence for DVT.
--- NOTE | 2022-02-12 13:14 | US ---
EXAMINATION TYPE: US arterial LE single level DATE OF EXAM: 02/11/2022 1:30 PM CLINICAL HISTORY: R29.898 WEAKNESS BOTH LEGS, R20.0 ANESTHESIA BOTH LEGS. Doppler Waveforms: Right: Multiphasic Left: Multiphasic Ankle-Brachial Indices: Right: 1.20 Left: 1.21 Toe Brachial Indices: Right: 1.01 Left: 1.01 IMPRESSION: Normal PRESTON. Correlate with arteriogram as clinically warranted.
== END | disposition home or self-care (01) ==
LOC: RADUSWWP 12:23
PROVIDERS: ATTEND Family Medicine
DX: R20.0 Anesthesia of skin (principal); R29.898 Other symptoms and signs involving the musculoskeletal system; R53.1 Weakness
CPT/HCPCS: 93922; 93970

== ENCOUNTER → 2023-08-02 | Outpatient (CLI) | payer MEDICARE, OTHER ==
[2023-08-02 15:37] LABS: Basophils # (A) 0.05 X 10*3/uL (0.00-0.10); Basophils % (A) 0.7 %; Eosinophils # (A) 0.04 X 10*3/uL (0.04-0.35); Eosinophils % (A) 0.6 %; HCT 40.5 % (37.2-46.3); HGB 13.1 d/dL (12.0-15.0); Lymphocytes # (A) 2.21 X 10*3/uL (0.90-5.00); Lymphocytes % (A) 30.6 %; MCH 31.1 pg (27.0-32.0); MCHC 32.3 d/dL (32.0-37.0); MCV 96.2 FL (80.0-97.0); Mean Platelet Volume 12.3 FL (9.5-12.2); Monocytes # (A) 0.57 X 10*3/uL (0.20-1.00); Monocytes % (A) 7.9 %; NRBC Per 100 WBC 0 X 10*3/uL (0.00-0.01); Neutrophils # (A) 4.32 X 10*3/uL (1.80-7.70); Neutrophils % (A) 59.8 %; Platelet Count 257 X 10*3/uL (140-440); RBC 4.21 X 10*6/uL (4.10-5.20); RDW 14.1 % (11.5-14.5); WBC 7.22 X 10*3/uL (4.50-10.00)
[2023-08-02 16:23] LABS: ALT 17 U/L (8-44); AST 17 U/L (13-35); Albumin 4.8 d/dL (3.8-4.9); Albumin/Globulin Ratio 1.71 Ratio (1.60-3.17); Alkaline Phosphatase 61 U/L (41-126); Blood Urea Nitrogen 10.8 mg/dL (9.0-27.0); Calcium 10.1 mg/dL (8.7-10.3); Carbon Dioxide 22.6 mmol/L (21.6-31.8); Chloride 106 mmol/L (96-109); Globulin 2.8 d/dL (1.6-3.3); Glucose 71 mg/dL (70-110); Potassium 4.2 mmol/L (3.5-5.5); Sodium 141 mmol/L (135-145); Total Bilirubin 0.4 mg/dL (0.3-1.2); Total Protein 7.6 d/dL (6.2-8.2)
== END | disposition home or self-care (01) ==
LOC: LABWHC1 12:41
PROVIDERS: ATTEND Nurse Practitioner Family
DX: B18.2 Chronic viral hepatitis C (principal)
CPT/HCPCS: 36415; 80053; 82105; 85025; 87522

== ENCOUNTER → 2023-08-13 | Outpatient (CLI) | payer MEDICARE, OTHER ==
--- NOTE | 2023-08-13 08:43 | US ---
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 FINDINGS: EXAM MEASUREMENTS: Liver Length: 14.5 cm Gallbladder Wall: 0.2 cm CBD: 0.3 cm Right Kidney: 10.5 x 4.1 x 4.8 cm Pancreas: wnl Liver: wnl Gallbladder: folds. no evidence of stones Evidence for sonographic Mckeon's sign: no CBD: wnl Right Kidney: no evidence of hydronephrosis IMPRESSION: Unremarkable evaluation.
== END | disposition home or self-care (01) ==
LOC: RADUSWWP 06:51
PROVIDERS: ATTEND Internal Medicine Gastroenterology
DX: B18.2 Chronic viral hepatitis C (principal)
CPT/HCPCS: 76705

== ENCOUNTER → 2023-08-26 | Outpatient (CLI) | payer MEDICARE, OTHER | END | disposition home or self-care (01) | LOC: LABWHC1 09:46 | PROVIDERS: ATTEND Internal Medicine Gastroenterology | DX: B18.2 Chronic viral hepatitis C (principal) | CPT/HCPCS: 36415; 87340 ==

== ENCOUNTER 2024-01-11 21:56 | Emergency (ER) | payer MEDICARE, OTHER ==
--- NOTE | 2024-01-11 22:10 | ED ---
General Adult HPI - General Source: patient, RN notes reviewed Mode of arrival: ambulatory Limitations: no limitations <Julia Guzmán - Last Filed: 01/11/24 22:09> <Rachel Durant - Last Filed: 01/12/24 02:11> - General Stated complaint: left side pain anxiety Time Seen by Provider: 01/11/24 22:09 - History of Present Illness Initial comments: Quick note: Patient is a 33-year-old female presented to the ER with a chief complaint of left neck and arm tingling. She also is endorsing chest discomfort and shortness of breath this is been going on for the past 3 to 4 days. (Julia Guzmán) Ericka a 33-year-old female who presents to the ER today with a multitude of complaints. Patient reports that she has been clean from substances for over 6 months just completed oral treatment for hepatitis C and states she is just very concerned that the drugs damaged her body. Patient states she is just not been feeling well this has been ongoing for some period of time. Patient states over the past few days she has been very nervous that something is wrong with her knee and she feels very anxious because of that she has been feeling some chest pain and palpitations. She has no cardiac history. Patient also notes she has had some constipation and then for the past couple days some watery diarrhea. She feels like she is bloated. (Rachel Durant) - Related Data Home Medications Medication Instructions Recorded Confirmed clonazePAM [KlonoPIN] 0.5 mg PO BID 01/07/19 07/23/20 Previous Rx's Medication Instructions Recorded Albuterol Inhaler [Ventolin Hfa 2 puff INHALATION RT-Q6H PRN 30 07/25/20 Inhaler] Days puff Nicotine 21Mg/24Hr Patch [Habitrol] 1 patch TRANSDERM DAILY 30 Days 07/25/20 patch Prazosin [Minipress] 1 mg PO HS 14 Days cap 07/25/20 QUEtiapine [SEROquel] 300 mg PO HS 14 Days tab 07/25/20 Venlafaxine HCl ER [Effexor XR] 37.5 mg PO DAILY 14 Days 07/25/20 cap.er.24h Allergies Allergy/AdvReac Type Severity Reaction Status Date / Time carbamazepine [From Tegretol] Allergy Unknown Verified 07/23/20 15:14 Penicillins Allergy Unknown Verified 07/23/20 15:14 Review of Systems ROS Other: All systems not noted in ROS Statement are negative. <Julia Guzmán - Last Filed: 01/11/24 22:09> ROS Other: All systems not noted in ROS Statement are negative. <Rachel Durant - Last Filed: 01/12/24 02:11> ROS Statement: Those systems with pertinent positive or pertinent negative responses have been documented in the HPI. 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 History of Any Multi-Drug Resistant Organisms: None Reported Additional Past Surgical History / Comment(s): edometriosis surgery Past Psychological History: Anxiety, Bipolar, PTSD Smoking Status: Former smoker Past Alcohol Use History: None Reported Past Drug Use History: Cocaine, Heroin, Opiates <Julia Guzmán - Last Filed: 01/11/24 22:09> General Exam <Julia Guzmán - Last Filed: 01/11/24 22:09> <Rachel Durant - Last Filed: 01/12/24 02:11> - General Exam Comments Initial Comments: Visual Physical Exam Vital signs reviewed General: Well-appearing, nontoxic, no acute distress. Head: Normocephalic, atraumatic Eyes: PERRLA, EOMI ENT: Airway patent Chest: Nonlabored breathing Skin: No visual rash, normal skin tone Neuro: Alert and oriented 3 Musculoskeletal: No gross abnormalities (Julia Guzmán) Physical Exam GENERAL: Patient is well-developed and well-nourished. Patient is nontoxic and well-hydrated and is in no distress. HENT: Normocephalic, Atraumatic. EYES: PERRL, EOMI PULMONARY: Unlabored respirations. CARDIOVASCULAR: RRR Warm and well perfused extremities ABDOMEN: Non-distended SKIN: No rashes or bruising : Deferred NEUROLOGIC: Alert and oriented Normal speech Normal gait MUSCULOSKELETAL: Moving all extremities with no apparent injury PSYCHIATRIC: No SI/HI (Rachel Durant) Course Vital Signs 01/11/24 22:14 Temperature 97.5 F L Pulse Rate 80 Respiratory 18 Rate Blood Pressure 124/84 O2 Sat by Pulse 98 Oximetry EKG Findings - EKG Comments: EKG Findings:: EKG interpreted by me, EKG obtained due to complaint of chest pain EKG obtained at 2231 rate is 77 rhythm is sinus there is normal axis normal intervals, OR is short, QRS 77 QTc [address] elevations depressions no evidence of ischemia or infarction. <Rachel Durant P - Last Filed: 01/12/24 02:11> Medical Decision Making <Julia Guzmán - Last Filed: 01/11/24 22:09> - Lab Data Result diagrams: 01/11/24 22:26 01/11/24 22:26 <Rachel Durant - Last Filed: 01/12/24 02:11> - Medical Decision Making I performed the quick note portion of this chart. Electronically signed by Julia Guzmán PA-C (Julia Guzmán) - Lab Data Lab Results 01/11/24 01/11/24 01/11/24 Range/Units 22:17 22:26 22:26 WBC 7.8 (3.8-10.6) k/uL RBC 3.99 (3.80-5.40) m/uL Hgb 12.8 (11.4-16.0) gm/dL Hct 39.0 (34.0-46.0) % MCV 97.8 (80.0-100.0) fL MCH 32.1 (25.0-35.0) pg MCHC 32.8 (31.0-37.0) g/dL RDW 12.4 (11.5-15.5) % Plt Count 173 (150-450) k/uL MPV 10.8 PT 11.9 (10.0-12.5) sec INR 1.1 (<1.2) APTT 26.0 (22.0-30.0) sec Sodium (137-145) mmol/L Potassium (3.5-5.1) mmol/L Chloride (98-107) mmol/L Carbon Dioxide (22-30) mmol/L Anion Gap mmol/L BUN (7-17) mg/dL Creatinine (0.52-1.04) mg/dL Est GFR (CKD-EPI)AfAm (>60 ml/min/1.73 sqM) Est GFR (CKD-EPI)NonAf (>60 ml/min/1.73 sqM) Glucose (74-99) mg/dL Calcium (8.4-10.2) mg/dL Total Bilirubin (0.2-1.3) mg/dL AST (14-36) U/L ALT (4-34) U/L Alkaline Phosphatase (38-126) U/L Troponin I (0.000-0.034) ng/mL Total Protein (6.3-8.2) g/dL Albumin (3.5-5.0) g/dL Influenza Type A (PCR) Not Detected (Not Detectd) Influenza Type B (PCR) Not Detected (Not Detectd) RSV (PCR) Not Detected (Not Detectd) SARS-CoV-2 (PCR) Not Detected (Not Detectd) 01/11/24 01/11/24 Range/Units 22:26 22:26 WBC (3.8-10.6) k/uL RBC (3.80-5.40) m/uL Hgb (11.4-16.0) gm/dL Hct (34.0-46.0) % MCV (80.0-100.0) fL MCH (25.0-35.0) pg MCHC (31.0-37.0) g/dL RDW (11.5-15.5) % Plt Count (150-450) k/uL MPV PT (10.0-12.5) sec INR (<1.2) APTT (22.0-30.0) sec Sodium 137 (137-145) mmol/L Potassium 4.3 (3.5-5.1) mmol/L Chloride 110 H (98-107) mmol/L Carbon Dioxide 18 L (22-30) mmol/L Anion Gap 9 mmol/L BUN 5 L (7-17) mg/dL Creatinine 0.51 L (0.52-1.04) mg/dL Est GFR (CKD-EPI)AfAm >90 (>60 ml/min/1.73 sqM) Est GFR (CKD-EPI)NonAf >90 (>60 ml/min/1.73 sqM) Glucose 90 (74-99) mg/dL Calcium 9.5 (8.4-10.2) mg/dL Total Bilirubin 0.8 (0.2-1.3) mg/dL AST 32 (14-36) U/L ALT 12 (4-34) U/L Alkaline Phosphatase 56 (38-126) U/L Troponin I <0.012 (0.000-0.034) ng/mL Total Protein 7.8 (6.3-8.2) g/dL Albumin 4.8 (3.5-5.0) g/dL Influenza Type A (PCR) (Not Detectd) Influenza Type B (PCR) (Not Detectd) RSV (PCR) (Not Detectd) SARS-CoV-2 (PCR) (Not Detectd) Disposition <Julia Guzmán - Last Filed: 01/11/24 22:09> Is patient prescribed a controlled substance at d/c from ED?: No <Rachel Durant - Last Filed: 01/12/24 02:11> Clinical Impression: Atypical chest pain Disposition: HOME SELF-CARE Condition: Stable Instructions (If sedation given, give patient instructions): Costochondritis (ED) Referrals: None,Stated [Primary Care Provider] - 1-2 days
[2024-01-11 22:29] VITALS: TEMP 97.5
[2024-01-11 23:02] LABS: HGB 12.8 gm/dL (11.4-16.0); MCH 32.1 pg (25.0-35.0); MCHC 32.8 g/dL (31.0-37.0); MCV 97.8 fL (80.0-100.0); Mean Platelet Volume 10.8; Platelet Count 173 k/uL (150-450); RBC 3.99 m/uL (3.80-5.40); RDW 12.4 % (11.5-15.5); WBC 7.8 k/uL (3.8-10.6)
[2024-01-11 23:07] LABS: INR 1.1 (<1.2); Prothrombin Time 11.9 sec (10.0-12.5)
[2024-01-11 23:11] LABS: ALT 12 U/L (4-34); African American GFR (CKD) >90 (>60 ml/min/1.73 sqM); Anion Gap 9 mmol/L; Blood Urea Nitrogen 5 mg/dL (7-17); Calcium 9.5 mg/dL (8.4-10.2); Carbon Dioxide 18 mmol/L (22-30); Chloride 110 mmol/L (98-107); Glucose 90 mg/dL (74-99); Non-African American GFR(CKD) >90 (>60 ml/min/1.73 sqM); Sodium 137 mmol/L (137-145); Total Bilirubin 0.8 mg/dL (0.2-1.3)
[2024-01-11 23:15] LABS: AST 32 U/L (14-36); Albumin 4.8 g/dL (3.5-5.0); Alkaline Phosphatase 56 U/L (38-126); Potassium 4.3 mmol/L (3.5-5.1); Total Protein 7.8 g/dL (6.3-8.2)
--- NOTE | 2024-01-12 00:15 | XR ---
EXAM: XR Chest, 2 Views CLINICAL HISTORY: ITS.REASON XR Reason: shortness of breath TECHNIQUE: Frontal and lateral views of the chest. COMPARISON: No relevant prior studies available. FINDINGS: Lungs: Unremarkable. No consolidation. Pleural space: Unremarkable. No pneumothorax. Heart: Unremarkable. No cardiomegaly. Mediastinum: Unremarkable. Normal mediastinal contour. Bones/joints: Unremarkable. No acute fracture. IMPRESSION: Normal chest x-rays.
--- NOTE | 2024-01-12 02:03 | XR ---
EXAM: XR Abdomen, 1 View CLINICAL HISTORY: ITS.REASON XR Reason: constipation TECHNIQUE: Frontal supine view of the abdomen/pelvis. COMPARISON: No relevant prior studies available. FINDINGS: Gastrointestinal tract: Unremarkable. No dilation. Bones/joints: Unremarkable. No acute fracture. IMPRESSION: Normal abdominal x-ray.
[2024-01-12 02:15] LABS: Appearance,Urine Clear (Clear); Bilirubin,Urine Negative (Negative); Blood,Urine Trace (Negative); Color,Urine Colorless; Glucose,Urine (UA) Negative (Negative); Ketones,Urine Negative (Negative); Leukocyte Esterase,Urine Negative (Negative); Mucus,Urine Few /hpf; Nitrite,Urine Negative (Negative); PH, Urine 5.5 (5.0-8.0); Protein,Urine Negative (Negative); RBC,Urine 1 /hpf (0-5); Specific Gravity,Urine 1.013 (1.001-1.035); Squamous Epithelial Cell,Urine 2 /hpf (0-4); Urobilinogen,Urine <2.0 mg/dL (<2.0); WBC,Urine 1 /hpf (0-5)
[2024-01-12 02:41] VITALS: BP 113/65; PULSE 88; RESP 16
== END 2024-01-12 02:43 | disposition home or self-care (01) ==
LOC: EC 21:56
DX: R07.89 Other chest pain (principal); Z88.0 Allergy status to penicillin; Z88.8 Allergy status to other drugs, medicaments and biological substances; Z87.891 Personal history of nicotine dependence
CPT/HCPCS: 36415; 71046; 74018; 80053; 81001; 81025; 84484; 85027; 85610; 85730; 87636; 93005; 99284